=== PATIENT | female | born 2000 | race Hispanic/Latino ===

== ENCOUNTER 2021-06-08 13:21 | Emergency (ER) | payer OTHER | END 2021-06-08 16:12 | disposition home or self-care (01) | LOC: ERS 13:21 | DX: S92.422A Displaced fracture of distal phalanx of left great toe, initial encounter for closed fracture (principal); W10.9XXA Fall (on) (from) unspecified stairs and steps, initial encounter ==

== ENCOUNTER 2022-01-09 18:40 | Emergency (ER) | payer OTHER | END 2022-01-09 22:15 | disposition home or self-care (01) | LOC: ERS 18:40 | DX: B36.9 Superficial mycosis, unspecified (principal); H62.42 Otitis externa in other diseases classified elsewhere, left ear | CPT/HCPCS: 87081; 87430; 99282 ==